=== PATIENT | female | born 1995 | race Caucasian/White ===

== ENCOUNTER 2019-05-04 00:01 | Observation (INO) | payer OTHER, SELFPAY ==
[2019-05-04] VITALS (13 sets, daily range): BP systolic 99–116; BP diastolic 61–79; PULSE 78–92; BMI 29.3
[2019-05-04 00:41] LABS: Glucose Point of Care 86 (65-105)
[2019-05-04 00:51] LABS: Add Urine Microscopic? YES; Amorphous Sediment Urine Few; Appearance Urine Cloudy (Clear); Bacteria Urine Trace /hpf; Bilirubin Urine Negative (Negative); Blood Urine 2+ (Negative); Color Urine Yellow (Yellow); Glucose Urine UA 3+ mg/dL (Negative); Ketones Urine Negative (Negative); Leukocyte Esterase Ur Trace LEU/UL (Negative); Mucus Urine Few /lpf; Nitrate Urine Negative (Negative); Protein Urine 1+ mg/dL (Negative); RBC Urine 51-75 /hpf (0-2); Specific Grav Ur 1.018 (1.001-1.035); Squamous Epithelial Cell Urine Many /hpf (Few)
--- NOTE | 2019-05-04 01:03 | PC.NURSE ---
Paged Dr. Lang @ [phone]- returned page at [phone]. pt came in c/o sharp lower abd pain and states that she passed out tonight around 2129. she states that she stood up from couch and passed out landing on her side on the couch. pt also states that she was dizzy prior to passing out. pt states that she had vomited x 45minutes prior to arrival. BS obtained due to pt stating that she checks her BS BID at home. BS-86. UA obtained and sent. UA results reviewed. orders received for CBC,CMP, TSH, and Free T4. order for LR 500mg bolus. call Dr. Lang with results of blood work.
[2019-05-04 01:32] LABS: Basophils Percent Auto 0.4 % (0.2-1.2); Eosinophils Absolute Auto 0.1 K/mm3 (0-0.3); Eosinophils Percent Auto 0.8 % (0-4.4); Hemoglobin 9.2 g/dL (12.0-15.0); Immature Granulocyte Absolute 0.09 K/mm3 (0.00-0.031); Immature Granulocyte Percent A 0.8 % (0-0.5); Lymphocytes Absolute Auto 1.68 K/mm3 (0.9-3.2); Lymphocytes Percent Auto 15.8 % (18.3-44.2); Mean Corpuscular HGB Conc 31.7 g/dl (32-36); Mean Corpuscular Hemoglobin 28.4 pg (26-34); Mean Corpuscular Volume 89.5 fl (80-100); Mean Platelet Volume 10.6 fl (7.4-10.4); Monocytes Percent Auto 9.1 % (2.6-8.5); Neutrophils Absolute Auto 7.8 K/mm3 (1.3-6.7); Neutrophils Percent Auto 73.1 % (45.5-73.1); Platelet Count Result 324 k/mm3 (150-375); Red Blood Count 3.24 M/mm3 (4.2-5.4); Red Cell Distribution Width 13.2 % (11.5-14.5); White Blood Count 10.6 K/mm3 (4.5-10.0)
[2019-05-04] MEDS: LACTATED RINGERS 500 ML 999 ML IV CONT (01:34)
--- NOTE | 2019-05-04 01:39 | OBADM ---
This patient, Chey Jones, admitted to the OB room OB Post 116 for observation. Patient/family oriented to hospital policies and general routines including ID bracelet, bed and alarms, visiting hours, pain management, procedures, bathroom and other care routines, personal items, smoking policy, room service/diet, and visiting hours. Patient/Family are encouraged to report perceived risks to care and to ask questions if they do not understand what they are told or what they should do.
[2019-05-04 01:59] LABS: Alanine Aminotransferase 9 U/L (4-35); Albumin Level 3.5 g/dL (3.5-5.1); Alkaline Phosphatase 93 U/L (38-126); Aspartate Amino Transferase 19 U/L (14-36); Bilirubin,Total 0.3 mg/dL (0.2-1.3); Blood Urea Nitrogen 4 mg/dL (7-17); Calcium 8.7 mg/dL (8.4-10.2); Carbon Dioxide 24 mmol/L (22-30); Chloride 101 mmol/L (98-107); Estimated CRCL calculation 126 ml/min; Estimated Glomerular Filt Rate > 60; Glucose 98 mg/dL (65-105); Potassium 3.4 mmol/L (3.4-5.0); Sodium 137 mmol/L (137-145)
[2019-05-04 02:19] LABS: Thyroid Stimulating Hormone 0.917 uIU/mL (0.465-4.680)
[2019-05-04 03:05] LABS: Free T4 Free Thyroxine 0.56 ng/mL (0.78-2.19)
--- NOTE | 2019-05-04 03:15 | PC.NURSE ---
paged Dr. Lang @[phone]. responded to page at [phone]. Labs reviewed, pt feeling better after bolus and oral fluids. ok to d/c pt home and pt to f/u at scheduled appt with Dr. Locke today at 0830. Dr. Lang requesting to send a copy of pt labs with pt to bring to office for appt.
--- NOTE | 2019-05-12 15:13 | PM.OBTRLD ---
OB - Triage/Final Diagnosis Visit Information Reason for evaluation: threatened labor Evaluation Laboratory results: Laboratory Tests 05/04/19 05/04/19 05/04/19 00:38 00:39 01:25 WBC 10.6 H RBC 3.24 L Hgb 9.2 L Hct 29.0 L MCV 89.5 MCH 28.4 MCHC 31.7 L RDW 13.2 Plt Count 324 MPV 10.6 H Immature Gran % (Auto) 0.8 H Neut % (Auto) 73.1 Lymph % (Auto) 15.8 L Oliver % (Auto) 9.1 H Eos % (Auto) 0.8 Baso % (Auto) 0.4 Lymph # (Auto) 1.68 Oliver # (Auto) 1.0 H Eos # (Auto) 0.1 Baso # (Auto) 0.0 Abs Immat Gran (auto) 0.09 H Absolute Neuts (auto) 7.8 H Absolute Nucleated RBC 0.0 Nucleated RBC % 0.0 Sodium Potassium Chloride Carbon Dioxide BUN Creatinine Estim Creat Clear Calc Estimated GFR Glucose POC Capillary Glucose 86 Calcium Total Bilirubin AST ALT Alkaline Phosphatase Total Protein Albumin TSH Free T4 Urine Color Yellow Urine Appearance Cloudy H Urine pH 6.0 Ur Specific [place] 1.018 Urine Protein 1+ H Urine Glucose (UA) 3+ H Urine Ketones Negative Ur Blood (Man) 2+ H Urine Nitrate Negative Urine Bilirubin Negative Urine Urobilinogen 2.0 H Leukocyte Esterase Rfl Trace H Urine RBC 51-75 H Urine WBC 4-6 H Ur Squamous Epith Cells Many H Amorphous Sediment Few H Urine Bacteria Trace Urine Mucus Few H 05/04/19 05/04/19 01:25 01:25 WBC RBC Hgb Hct MCV MCH MCHC RDW Plt Count MPV Immature Gran % (Auto) Neut % (Auto) Lymph % (Auto) Oliver % (Auto) Eos % (Auto) Baso % (Auto) Lymph # (Auto) Oliver # (Auto) Eos # (Auto) Baso # (Auto) Abs Immat Gran (auto) Absolute Neuts (auto) Absolute Nucleated RBC Nucleated RBC % Sodium 137 Potassium 3.4 Chloride 101 Carbon Dioxide 24 BUN 4 L Creatinine 0.50 L Estim Creat Clear Calc 126 Estimated GFR > 60 Glucose 98 POC Capillary Glucose Calcium 8.7 Total Bilirubin 0.3 AST 19 ALT 9 Alkaline Phosphatase 93 Total Protein 7.0 Albumin 3.5 TSH 0.917 Free T4 0.56 L Urine Color Urine Appearance Urine pH Ur Specific [place] Urine Protein Urine Glucose (UA) Urine Ketones Ur Blood (Man) Urine Nitrate Urine Bilirubin Urine Urobilinogen Leukocyte Esterase Rfl Urine RBC Urine WBC Ur Squamous Epith Cells Amorphous Sediment Urine Bacteria Urine Mucus
== END 2019-05-04 03:30 | disposition home or self-care (01) ==
PROVIDERS: Obstetrics & Gynecology; Admitting Provider Obstetrics & Gynecology Gynecology; Visit Provider Obstetrics & Gynecology Gynecology
DX: O47.03 False labor before 37 completed weeks of gestation, third trimester (principal); Z3A.32 32 weeks gestation of pregnancy
CPT/HCPCS: 36415; 80053; 81001; 84439; 84443; 85025; 96360; G0378; G0379; J7120

== ENCOUNTER 2019-05-16 23:18 | Observation (INO) | payer OTHER, SELFPAY ==
[2019-05-16 23:33] VITALS: BP 113/73; PULSE 108
[2019-05-17 00:26] LABS: Add Urine Microscopic? YES; Appearance Urine Cloudy (Clear); Bacteria Urine Trace /hpf; Bilirubin Urine Negative (Negative); Blood Urine 2+ (Negative); Color Urine Yellow (Yellow); Glucose Urine UA 3+ mg/dL (Negative); Ketones Urine Negative (Negative); Leukocyte Esterase Ur Trace LEU/UL (Negative); Mucus Urine Rare /lpf; Nitrate Urine Negative (Negative); Protein Urine Negative (Negative); Specific Grav Ur 1.008 (1.001-1.035); Squamous Epithelial Cell Urine Many /hpf (Few); Transitional Epi Cells Urine Rare /hpf (None Seen); Urobilinogen Urine Negative mg/dL (<2.0)
--- NOTE | 2019-06-11 09:25 | PM.OBTRLD ---
OB - Triage/Final Diagnosis Visit Information Date of evaluation: 05/17/19 Comments/Additional reasons for admission: contractions Evaluation Laboratory results: Laboratory Tests 05/16/19 23:51 Urine Color Yellow Urine Appearance Cloudy H Urine pH 7.0 Ur Specific [place] 1.008 Urine Protein Negative Urine Glucose (UA) 3+ H Urine Ketones Negative Ur Blood (Man) 2+ H Urine Nitrate Negative Urine Bilirubin Negative Urine Urobilinogen Negative Leukocyte Esterase Rfl Trace H Urine RBC 3-5 H Urine WBC 7-9 H Ur Squamous Epith Cells Many H Ur Transition Epith Cell Rare Urine Bacteria Trace Urine Mucus Rare
== END 2019-05-17 01:30 | disposition home or self-care (01) ==
PROVIDERS: Admitting Provider Obstetrics & Gynecology; Visit Provider Obstetrics & Gynecology
DX: O60.03 Preterm labor without delivery, third trimester (principal); Z3A.34 34 weeks gestation of pregnancy
CPT/HCPCS: 81001; 87086; 87088; G0378; G0379

== ENCOUNTER 2019-06-03 00:37 | Observation (INO) | payer OTHER, SELFPAY ==
[2019-06-03 00:48] VITALS: BMI 29.7
[2019-06-03 02:16] VITALS: BP 117/76; PULSE 114
[2019-06-03 02:31] VITALS: BP 104/57; PULSE 98
[2019-06-03 02:46] VITALS: BP 118/76; PULSE 95
--- NOTE | 2019-06-14 10:53 | PM.OBTRLD ---
OB - Triage/Final Diagnosis Final Diagnosis (1) contractions: Code(s): O47.9 - False labor, unspecified Status: Acute
== END 2019-06-03 03:05 | disposition home or self-care (01) ==
PROVIDERS: Admitting Provider Obstetrics & Gynecology; Visit Provider Obstetrics & Gynecology
DX: O47.03 False labor before 37 completed weeks of gestation, third trimester (principal); Z3A.36 36 weeks gestation of pregnancy
CPT/HCPCS: G0378; G0379

== ENCOUNTER 2019-06-07 19:36 | Observation (INO) | payer OTHER, SELFPAY ==
--- NOTE | ~2019-06-07 | US_ITS ---
EXAMINATION: US OB limited w BPP DATE: 06/07/2019 22:00 INDICATION: tachycardia TECHNIQUE: Real-time pelvic ultrasound was performed. The interpreting radiologist was not present fo r the study. COMPARISON: None. FINDINGS: There is a single living fetus in vertex presentation. The placenta is posterior. heart rate is 157 beats per minute (bpm). The amniotic fluid index is 10.3 cm which is normal Biophysical profile performed by the technologist: breathing (30 sec sustained breathing in 30 minutes): 2 out of 2 movement (3 gross body movements in 30 minutes): 2 out of 2 tone (one episode of yrwkdue-ubaommslj-bphzauf limb movement): 2 out of 2 Amniotic fluid pocket (2 cm): 2 out of 2 Total score: 8 out of 8 IMPRESSION: 1. Single living fetus in vertex presentation. 2. Biophysical profile 8 out of 8. 3. Normal amniotic fluid index. Reviewed, dictated and finalized at location A.
--- NOTE | 2019-06-07 19:36 | OBADM ---
This patient, Chey Jones, admitted to the OB room Labor/Delivery/Recovery 118 for observation. Patient/family oriented to hospital policies and general routines including ID bracelet, bed and alarms, visiting hours, pain management, procedures, bathroom and other care routines, personal items, smoking policy, room service/diet, and visiting hours. Patient/Family are encouraged to report perceived risks to care and to ask questions if they do not understand what they are told or what they should do.
[2019-06-07 19:50] VITALS: TEMP 37.2
--- NOTE | 2019-06-07 20:25 | PC.NURSE ---
Updated Dr. Locke on patient arrival to OB unit for NST for decreased movement. Active movement visualized, palpated and per patient after arrival to OB unit. FHT tachycardic in 170's with moderate variability. No contractions noted via toco monitor or per patient, mild uterine irritability present. VSS. Patient PO hydrating over 30 minutes and FHT remain tachy. Orders given for IV fluid bolus of 500cc LR, with 200cc continuos following bolus. Order for ultrasound with BPP, SARAH and placenta check ordered STAT. Order for CBC STAT given.
--- NOTE | 2019-06-07 20:35 | PC.NURSE ---
Plan of care discussed with patient. Patient states understanding with plan of care and denies questions.
[2019-06-07] MEDS: LACTATED RINGERS 1,000 ML 999 ML IV CONT (20:49)
[2019-06-07 21:13] LABS: Basophils Percent Auto 0.2 % (0.2-1.2); Eosinophils Absolute Auto 0.1 K/mm3 (0-0.3); Eosinophils Percent Auto 0.6 % (0-4.4); Hemoglobin 8.4 g/dL (12.0-15.0); Immature Granulocyte Absolute 0.06 K/mm3 (0.00-0.031); Immature Granulocyte Percent A 0.6 % (0-0.5); Lymphocytes Absolute Auto 1.41 K/mm3 (0.9-3.2); Lymphocytes Percent Auto 15.1 % (18.3-44.2); Mean Corpuscular HGB Conc 31.1 g/dl (32-36); Mean Corpuscular Hemoglobin 26.2 pg (26-34); Mean Corpuscular Volume 84.1 fl (80-100); Monocytes Absolute Auto 0.9 K/mm3 (0.1-0.6); Monocytes Percent Auto 9.6 % (2.6-8.5); Neutrophils Absolute Auto 6.9 K/mm3 (1.3-6.7); Neutrophils Percent Auto 73.9 % (45.5-73.1); Platelet Count Result 297 k/mm3 (150-375); Red Blood Count 3.21 M/mm3 (4.2-5.4); Red Cell Distribution Width 13.8 % (11.5-14.5); White Blood Count 9.3 K/mm3 (4.5-10.0)
--- NOTE | 2019-06-07 21:40 | PC.NURSE ---
Patient taken to ultrasound via wheelchair
[2019-06-07 21:58] VITALS: BMI 29.7
--- NOTE | 2019-06-07 22:02 | PC.NURSE ---
Patient returned from Ultrasound. Patient up to restroom.
[2019-06-07 22:04] VITALS: TEMP 37.1
--- NOTE | 2019-06-07 22:18 | PC.NURSE ---
Updated Dr. Locke with ultrasound report including BPP 8/, SARAH 10.3. CBC results reported. Dr. Locke updated on FHT 135/moderate/accelerations. Variables to 130's noted while fht tachycardia in 170's. Order given to admit patient for observation FHT monitoring overnight. Maintain IV fluids at 125ml/hr overnight.
[2019-06-07 22:39] VITALS: BP 126/77; PULSE 83
[2019-06-08] MEDS: LACTATED RINGERS 1,000 ML 125 ML IV CONT (00:16)
--- NOTE | 2019-06-08 00:17 | PC.NURSE ---
Patient resting comfortably.
[2019-06-08 01:26] VITALS: BP 124/73; PULSE 78; TEMP 36.9
[2019-06-08 05:26] VITALS: BP 109/51; PULSE 90; TEMP 37.2
--- NOTE | 2019-06-08 07:59 | WPDOBADMIT ---
Obstetrics - Admit Note Admission Note: record reviewed. No pertinent additions to the history and/or any subsequent changes in the physical findings that are not consistent with the expected course of the were found. Additions to the history and/or subsequent changes in the physical findings follow. Here with decreased movement. Fetus with tachycardia sustained. BPP 8/8 with normal fluid. When returned from u/s FHTs 130's and reactive. Kept overnight to obs. fetus and remained normal rate. Hb noted at 8.4 and has been taking iron BID. Will give iron infusion prior to DC then q week until delivers. DC once receives infusion
[2019-06-08 08:00] VITALS: TEMP 36.3
[2019-06-08 09:26] VITALS: BP 109/73; PULSE 95
[2019-06-08] MEDS: IRON SUCROSE COMPLEX 100 MG in SODIUM CHLORIDE 0.9% IV 100 ML 400 MG IVPB (09:27)
[2019-06-08 09:28] VITALS: TEMP 36.9
== END 2019-06-08 10:25 | disposition home or self-care (01) ==
LOC: ANHLDR 20:53 → ANHOBPP 22:28
PROVIDERS: Admitting Provider Obstetrics & Gynecology Gynecology; Visit Provider Obstetrics & Gynecology Gynecology
DX: O36.8130 Decreased fetal movements, third trimester, not applicable or unspecified (principal); O36.8330 Maternal care for abnormalities of the fetal heart rate or rhythm, third trimester, not applicable or unspecified; Z3A.37 37 weeks gestation of pregnancy
CPT/HCPCS: 36415; 76815; 76819; 85025; 96360; 96361; 96365; G0378; G0379; J1756; J7120

== ENCOUNTER 2019-06-21 16:41 | Inpatient (IN) | payer OTHER, SELFPAY ==
[2019-05-31 12:38] VITALS: BMI 29.7
[2019-06-21] VITALS (13 sets, daily range): BP systolic 103–125; BP diastolic 53–69; PULSE 82–102; TEMP 36.9
[2019-06-21 17:52] LABS: Basophils Percent Auto 0.1 % (0.2-1.2); Eosinophils Percent Auto 0.4 % (0-4.4); Hematocrit 29.6 % (37.0-47.0); Hemoglobin 9.1 g/dL (12.0-15.0); Immature Granulocyte Absolute 0.04 K/mm3 (0.00-0.031); Immature Granulocyte Percent A 0.5 % (0-0.5); Lymphocytes Absolute Auto 1.06 K/mm3 (0.9-3.2); Mean Corpuscular HGB Conc 30.7 g/dl (32-36); Mean Corpuscular Hemoglobin 25.8 pg (26-34); Mean Corpuscular Volume 83.9 fl (80-100); Mean Platelet Volume 10.6 fl (7.4-10.4); Monocytes Absolute Auto 0.7 K/mm3 (0.1-0.6); Monocytes Percent Auto 8.4 % (2.6-8.5); Neutrophils Absolute Auto 6.3 K/mm3 (1.3-6.7); Neutrophils Percent Auto 77.6 % (45.5-73.1); Platelet Count Result 322 k/mm3 (150-375); Red Blood Count 3.53 M/mm3 (4.2-5.4); Red Cell Distribution Width 15.4 % (11.5-14.5); White Blood Count 8.1 K/mm3 (4.5-10.0)
--- NOTE | 2019-06-21 18:02 | LDADM ---
This patient, Chey Jones, was admitted to Labor/Delivery/Recovery 107 on 06/21/19 at 16:41. Plans for labor, pain management and were discussed with patient. Patient/family oriented to hospital policies and general routines including ID bracelet, bed and alarms, visiting hours, pain management, procedures, bathroom and other care routines, personal items, smoking policy, room service/diet and guest tray routines, infant security routines, and visiting hours. Patient/Family are encouraged to report perceived risks to care and to ask questions if they do not understand what they are told or what they should do. See OBIX for further documentation.
[2019-06-21] MEDS: DINOPROSTONE 10 MG VAG INSERT VAGINAL (19:28)
[2019-06-22] VITALS (95 sets, daily range): BP systolic 102–145; BP diastolic 48–100; PULSE 67–126; TEMP 36.3–38.1; O2SAT 96–100
[2019-06-22 06:24] LABS: Glucose Point of Care 73 (65-105)
--- NOTE | 2019-06-22 07:50 | WPDOBADMIT ---
Obstetrics - Admit Note Admission Note: record reviewed. No pertinent additions to the history and/or any subsequent changes in the physical findings that are not consistent with the expected course of the were found. Additions to the history and/or subsequent changes in the physical findings follow. None.Here for CHEPECindy Jacksonnicci last pm. Now /-2 AROM with clear fluid. FHTs reactive.
[2019-06-22 07:54] LABS: Rapid Plasma Reagin Non-Reactive (NonReactive)
[2019-06-22] MEDS: LACTATED RINGERS 1,000 ML 125 ML IV CONT ×4 (08:54→22:46)
[2019-06-22] MEDS: OXYTOCIN 30 UNITS/NS 500 ML 30 UNITS/500 ML BAG 6 UNITS IV CONT (08:56)
[2019-06-22 12:18] LABS: Glucose Point of Care 79 (65-105)
[2019-06-22 18:19] LABS: Glucose Point of Care 80 (65-105)
--- NOTE | 2019-06-22 19:51 | P.PCNOB_ITS ---
OB - Delivery Note Procedure Delivery date: 06/22/19 Procedure: events: Gestational Diabetes (GDMA1) Induction method: AROM, per pitocin protocol and other (cervadil) Delivery monitor: external FHT and external uterine Route of delivery: Laceration description: Perineal - 2nd Degree Delivery repair: vicryl Specimen: No Estimated blood loss (mL): 200 Anesthesia type: Local Disposition: floor [place] Baby Weeks of gestation at delivery: 39 Infant gender: Female Weight (pounds): 7 Weight (ounces): 2 presentation: vertex Placenta delivery description: Spontaneous cord vessel description: 3 Vessels score one minute: 9 score five minutes: 9
--- NOTE | 2019-06-22 19:52 | PM.OBDSVD ---
DS: Diagnosis Discharge Diagnosis (1) 39 weeks gestation of : Code(s): Z3A.39 - 39 weeks gestation of Status: Acute (2) (normal spontaneous vaginal delivery): Code(s): O80 - Encounter for full-term uncomplicated delivery Status: Acute (3) GDM, class A1: Code(s): O24.410 - Gestational diabetes mellitus in , diet controlled Status: Acute OB - DS: Summary OB Procedures : NST and Ultrasound OB Procedures Intrapartum: Spontaneous Vag Delivery OB Procedures: : None Peripartum Data Infant Delivery Method: Natural Vaginal Laceration description: Perineal - 2nd Degree complications: none Status at Discharge Functional status at discharge: independent ambulation Overall status at discharge: patient is progressing back to baseline Time Spent with Patient Time attestation: Total time spent providing and/or coordinating discharge services: DS: Data Data Completed and Pending Labs on day of discharge: Labs from last 24 hours 06/22/19 06/22/19 06/22/19 18:16 12:13 06:19 POC Capillary Glucose 80 79 73 RPR 06/21/19 17:35 POC Capillary Glucose RPR Non-reactive Discharge Plan Discharge Attending physician on discharge: Meredith Locke Discharging Clinician: Meredith Locke Anticipated Discharge Date/Time: 06/24/19 07:54 Patient Disposition: Home, Self-Care Activity: pelvic rest Diet: regular Patient Instructions: Antibiotic Form Stand Alone Forms: General Discharge Information Follow-up/Referrals: Meredith Locke MD [Physician] - 6 Weeks Discharge Medications: Continued iron 2 tab-cap PO DAILY RF: 0 ergocalciferol (vitamin D2) 1,250 mcg (50,000 unit) capsule DAILY RF: 0 PNV cmb#95-ferrous fumarate-FA [] 28 mg iron- 800 mcg tablet PO RF: 0 Date of admission: 06/21/19 16:41 Primary Care Provider: UNKNOWN,DOCTOR Admitting Provider: Meredith Locke Attending physician on admission: Meredith Locke Condition: Stable
[2019-06-22] MEDS: OXYTOCIN 30 UNITS/NS 500 ML 30 UNITS/500 ML BAG 125 UNITS IV CONT (19:56)
[2019-06-22] MEDS: IBUPROFEN 600 MG TABLET PO (20:48)
[2019-06-22 23:00] LABS: Glucose Point of Care 147 (65-105)
[2019-06-22 23:00] LABS: Glucose Point of Care 151 (65-105)
--- NOTE | 2019-06-22 23:45 | OBPPTRN ---
Patient transferred to post room #282 via wheelchair with in crib. Support person present. Oriented to unit, room, information board, rooming in, admission packet and security measures. Patient verbalizes understanding.
[2019-06-23 00:20] VITALS: BP 125/75; PULSE 96; RESP 17; TEMP 37.3
[2019-06-23 06:09] LABS: Hematocrit 25.2 % (37.0-47.0); Hemoglobin 7.6 g/dL (12.0-15.0)
[2019-06-23 07:35] VITALS: BP 115/60; PULSE 91; RESP 18; TEMP 36.6; O2SAT 99
[2019-06-23] MEDS: DOCUSATE SODIUM 100 MG CAPSULE PO ×2 (07:44→16:14)
[2019-06-23] MEDS: POLYSACCHARIDE IRON COMPLEX 150 MG CAPSULE PO ×2 (07:44→16:14)
[2019-06-23] MEDS: IBUPROFEN 600 MG TABLET PO ×2 (07:44→16:14)
--- NOTE | 2019-06-23 08:58 | PM.OBPNVD ---
OB - PN: Subj Subjective Date/time seen: 06/23/19 08:58 Patient comments: no complaints, pain well controlled, tolerating diet and flatus present [place] baby status: doing well and bottle feeding well [place] feeding status: exclusively bottle feeding OB - PN: Obj Data Labs CBC & Chem 7: 06/23/19 05:17 Labs: Laboratory Results - last 24 hr 06/22/19 06/22/19 06/22/19 12:13 18:16 22:51 Hgb Hct POC Capillary Glucose 79 80 151 H 06/22/19 06/23/19 22:52 05:17 Hgb 7.6 L Hct 25.2 L POC Capillary Glucose 147 H OB - PN A/P Plan day: 1 Plan: routine care Time Spent With Patient Time: Total time spent is greater than 50% in coordination of care (as documented) at patient's floor/unit and/or counseling patient: Time with patient: less than 15 minutes Review of Systems Constitutional: Constitutional: Reports no additional constitutional complaints Cardiovascular: Cardiovascular: Reports no additional cardiovascular complaints Respiratory: Respiratory: Reports no additional respiratory complaints Gastrointestinal: Gastrointestinal: Reports no additional gastrointestinal complaints Exam Const: General: comfortable, no acute distress, alert and awake Resp: Effort & Inspection: normal respiratory effort Auscultation: clear to auscultation bilaterally Cardio: Rate: regular rate GI: Auscultation: normal bowel sounds Other: Fundus firm below umbilicus
[2019-06-23 20:25] VITALS: BP 113/71; PULSE 80; RESP 14; TEMP 36.8; O2SAT 100
[2019-06-24] MEDS: IBUPROFEN 600 MG TABLET PO ×2 (01:32→08:44)
--- NOTE | 2019-06-24 07:35 | PM.OBPNVD ---
OB - PN: Subj Subjective Date/time seen: 06/24/19 07:35 Patient comments: no complaints and pain well controlled baby status: doing well and bottle feeding well OB - PN: Obj Data Labs CBC & Chem 7: 06/23/19 05:17 OB - PN A/P Assessment and Plan (1) Anemia: Code(s): D64.9 - Anemia, unspecified Status: Acute Assessment and Plan: Plan iron BID x 8 wks Plan day: 2 Plan: routine care, discharge home and other (Plans Loestrin 24 for bc) Time Spent With Patient Time: Total time spent is greater than 50% in coordination of care (as documented) at patient's floor/unit and/or counseling patient: Exam : Bimanual exam- vagina & uterus: other (Uterus firm, nt @U)
[2019-06-24 08:10] VITALS: BP 113/74; PULSE 82; RESP 16; TEMP 36.9; O2SAT 99
[2019-06-24] MEDS: POLYSACCHARIDE IRON COMPLEX 150 MG CAPSULE PO (08:44)
[2019-06-24] MEDS: DOCUSATE SODIUM 100 MG CAPSULE PO (08:44)
[2019-06-24] MEDS: MEASLES,MUMPS,RUBELLA VACCINE 0.5 ML VIAL SUB-Q (08:45)
--- NOTE | 2019-06-24 10:43 | PC.NURSE ---
Patient viewed the discharge video Mother & Baby Care, The First Two Weeks . Patient was given the opportunity and encouraged to ask questions. Patient verbalized understanding of information shared and has been given the mother/baby guide for home reference.
[2019-06-25 07:44] VITALS: BP 112/78; PULSE 78; RESP 16; TEMP 36.4; O2SAT 100
== END 2019-06-24 12:01 | disposition home or self-care (01) | DRG 560 ==
LOC: ANHLDR 06-22 19:55 → ANHOB2 06-23 00:13
PROVIDERS: Admitting Provider Obstetrics & Gynecology Gynecology; Visit Provider Obstetrics & Gynecology Gynecology
DX: O24.429 Gestational diabetes mellitus in childbirth, unspecified control (principal); Z37.0 Single live birth; Z3A.39 39 weeks gestation of pregnancy; O70.1 Second degree perineal laceration during delivery; O69.81X0 Labor and delivery complicated by cord around neck, without compression, not applicable or unspecified
CPT/HCPCS: 36415; 85014; 85018; 85025; 86592; 86850; 86900; 86901; 90710; A9270; J2590; J2795; J3010; J7120

== ENCOUNTER 2021-02-17 11:33 | Emergency (ER) | payer OTHER, SELFPAY ==
[2021-02-17 11:38] VITALS: BP 102/70; PULSE 94; RESP 16; TEMP 37; O2SAT 100
--- NOTE | 2021-02-17 12:57 | ED.URI ---
HPI - URI/Sore Throat General Chief Complaint: Upper Respiratory Infection Stated Complaint: congestion and ear aches Time Seen by Provider: 02/17/21 12:47 Source: patient and RN notes reviewed Mode of arrival: ambulatory Limitations: no limitations History of Present Illness HPI Narrative: Patient presents today with a 4-day history of nasal congestion and bilateral ear pain with muffled hearing. Denies any additional symptoms to include fever, cough, sore throat. She currently rates her pain 7/10 and has been taking Benadryl and using pjub-imq-oixzxob eardrops without relief. MD elicited complaint: nasal congestion and other (Ear pain) Related Data Home Medications Medication Instructions Recorded Confirmed amitriptyline 10 mg PO HS 02/17/21 02/17/21 levonorgestrel [Kyleena] 1 device INTRAUTERINE ONCE 02/17/21 02/17/21 Allergies Allergy/AdvReac Type Severity Reaction Status Date / Time No Known Allergies Allergy Verified 02/17/21 11:55 Review of Systems Review of Systems: CONSTITUTIONAL: Denies body aches, fever, chills, or sweats. EYES: Denies visual changes, redness, or discharge. ENT: Denies rhinorrhea, sore throat. + Bilateral ear pain, nasal congestion, muffled hearing CARDIOVASCULAR: Denies chest pain, palpitations, or edema. RESPIRATORY: Denies cough or dyspnea. GASTROINTESTINAL: Denies abdominal pain, nausea, vomiting, or diarrhea. GENITOURINARY: Denies dysuria or hematuria. SKIN: Denies rash, itching, or wounds. MUSCULOSKELETAL: Denies back pain, joint pain, or myalgia. NEUROLOGIC: Denies headache, numbness, tingling, or weakness. PSYCH: Denies depression or anxiety. [facility] Past Medical History Medical History contractions (Unknown) Family History Family History Grandparent Colon cancer Mother Diabetes mellitus Grandparent Diabetes mellitus Social History Social History Smoking status: Never smoker Second hand tobacco smoke exposure: No Substance use: never Gender identity (if verbalized by the patient): Female Spiritual care concerns: No Comments At time of signature, I have reviewed and agree with nursing past medical, surgical, social and family history unless otherwise noted. Please see nursing chart for further information. There is no relevant family history pertinent to the presenting complaint Exam Narrative: GENERAL: Well-appearing, well-nourished, and in no acute distress. HEAD: Normocephalic, atraumatic. EYES: EOMI. No redness or drainage. Conjunctivae normal. ENT: Mucous membranes pink and moist. Nares clear. No rhinorrhea. TMs normal bilaterally. Throat normal. Uvula midline. NECK: Normal AROM. Supple. No lymphadenopathy. CHEST: No respiratory distress. Clear to auscultation. HEART: Regular rate and rhythm. No murmur appreciated. Normal peripheral pulses. EXTREMITIES: Normal range of motion. No edema. SKIN: Warm, dry, no rash. Capillary refill normal. Normal skin turgor. NEURO: No focal deficits. Alert and oriented x3. Gait steady. PSYCH: Normal affect. No signs of depression or anxiety. Course Vital Signs Vital signs: Vital Signs Temperature 98.6 F 02/17/21 11:38 Pulse Rate 94 02/17/21 11:38 Respiratory Rate 16 02/17/21 11:38 Blood Pressure 102/70 02/17/21 11:38 Pulse Oximetry 100 02/17/21 11:38 Temperature 98.6 F 02/17/21 11:38 Pulse Rate 94 02/17/21 11:38 Respiratory Rate 16 02/17/21 11:38 Blood Pressure 102/70 02/17/21 11:38 Pulse Oximetry 100 02/17/21 11:38 At time of signature, I have reviewed and agree with nursing past medical, surgical, social and family history unless otherwise noted. Please see nursing chart for further information. There is no relevant family history pertinent to the presenting complaint M
== END 2021-02-17 13:00 | disposition home or self-care (01) ==
PROVIDERS: Emergency Provider Nurse Practitioner
DX: J06.9 Acute upper respiratory infection, unspecified (principal); F32.A Depression, unspecified
CPT/HCPCS: 99211; G0463

== ENCOUNTER 2021-07-12 17:04 | Emergency (ER) | payer OTHER, SELFPAY ==
[2021-07-12 17:22] VITALS: BP 129/79; PULSE 90; RESP 16; TEMP 37.2; O2SAT 100
--- NOTE | 2021-07-12 18:12 | ED.EAR ---
HPI - Ear Problem General Chief complaint: Ear Stated complaint: right side ear infection Time Seen by Provider: 07/12/21 18:05 Source: patient, RN notes reviewed and old records reviewed Mode of arrival: ambulatory Limitations: no limitations History of Present Illness HPI Narrative: 26-year-old female who presents to [facility] with complaints of sinus problems and drainage for 4 to 5 days with complaints of right ear discomfort for the past 2 days. Patient states that her right ear feels like she is underwater, voices throbbing pain and decreased hearing. Patient report that she has been taking Ibuprofen and Tylenol for pain and has used some OTC ear drops to her right ear. Patient denies any fevers, chills or sweats, denies any body aches, shortness of breath or any noted wheezing.Patient reports that she has had Flu shot this year no COVID vaccination states had past COVID infection. MD Complaint: ear pain (right) Location: right ear Duration: constant Discharge from ear: Reports no Associated symptoms ear: decreased hearing Treatment prior to arrival: eardrops and oral analgesic Related Data Home Medications Medication Instructions Recorded Confirmed amitriptyline 10 mg PO HS 02/17/21 07/12/21 levonorgestrel [Kyleena] 1 device INTRAUTERINE ONCE 02/17/21 07/12/21 Allergies Allergy/AdvReac Type Severity Reaction Status Date / Time No Known Allergies Allergy Verified 07/12/21 17:31 Review of Systems Review of Systems: CONSTITUTIONAL: Denies fever, chills, or sweats. EYES: Denies visual changes, redness, or discharge. ENT: Positive for rhinorrhea, congestion,no sore throat, positive for right otalgia. CARDIOVASCULAR: Denies chest pain, palpitations, or edema. RESPIRATORY: Denies cough or dyspnea. GASTROINTESTINAL: Denies abdominal pain, nausea, vomiting, or diarrhea. GENITOURINARY: Denies dysuria or hematuria. SKIN: Denies rash or itching. MUSCULOSKELETAL: Denies back pain, joint pain, or myalgia. NEUROLOGIC: Denies headache, numbness, or weakness. PSYCHIATRIC: Positive for history of anxiety or depression. [facility] Past Medical History Medical History Anxiety and depression History of sinus problem contractions (Unknown) Family History Family History Grandparent Colon cancer Mother Diabetes mellitus Grandparent Diabetes mellitus Social History Social History Smoking status: Never smoker Second hand tobacco smoke exposure: No Substance use: never Gender identity (if verbalized by the patient): Female Spiritual care concerns: No Exam Narrative: GENERAL: Well-appearing, well-nourished, and in no acute distress. HEAD: Normocephalic, atraumatic. EYES: PERRLA and EOMI. ENT: Nares with some redness and clear rhinorrhea no epistaxis. Mucous membranes moist.Right TM red and bulging no drainage noted, throat mild redness, no lesions or tonsil swelling, post nasal drainage NECK: Supple.no lymphadenophy CHEST: Clear to auscultation. No respiratory distress.no cough noted no tachypnea, SAO2 100% on room air HEART: Regular rate and rhythm. No murmur heard. Normal peripheral pulses. ABDOMEN: Soft, nontender, nondistended, normal active bowel sounds. EXTREMITIES: Normal range of motion. No edema. SKIN: Warm, dry, no rash. NEURO: No focal deficits. Alert and oriented x3. Course Course Level of Care: Express Care Visit Vital Signs Vital signs: Vital Signs Temperature 37.2 C 07/12/21 17:22 Pulse Rate 90 07/12/21 17:22 Respiratory Rate 16 07/12/21 17:22 Blood Pressure 129/79 07/12/21 17:22 Pulse Oximetry 100 07/12/21 17:22 Temperature 37.2 C 07/12/21 17:22 Pulse Rate 90 07/12/21 17:22 Respiratory Rate 16 07/12/21 17:22 Blood Pressure 129/79 07/12/21 17:22 Pulse Oximetry 100 07/12/21 17
== END 2021-07-12 18:25 | disposition home or self-care (01) ==
PROVIDERS: Emergency Provider Registered Nurse
DX: H65.01 Acute serous otitis media, right ear (principal); J06.9 Acute upper respiratory infection, unspecified; F32.A Depression, unspecified; Z86.16 Personal history of COVID-19; Z28.310 Unvaccinated for COVID-19
CPT/HCPCS: 99213; G0463

== ENCOUNTER 2021-10-17 15:58 | Outpatient (CLI) | payer OTHER, SELFPAY ==
--- NOTE | ~2021-10-17 | US_ITS ---
EXAMINATION: US pelvic complete DATE: 10/17/2021 17:15 INDICATION: Pelvic pain Comparison:No prior studies for comparison. TECHNIQUE: Multiple transabdominal and endovaginal sonographic images of the pelvis performed. FINDINGS: The uterus measures 7.5 x 3 x 3.6 cm. There is an IUD in the endometrium. The endometrial c omplex measures 2.3 mm. The right ovary measures 2.8 x 1.7 x 2.9 cm and the left ovary measures 2.4 x 2.5 x 1.4 cm. There ar e small follicles in each ovary. Normal doppler signal in both ovaries. There is no free fluid in the pelvis. There are no abnormal masses seen on either side. IMPRESSION: 1. Unremarkable pelvic ultrasound. IUD in expected position in the endometrium. Reviewed, dictated and finalized at location A.
== END 2021-10-17 15:59 | disposition home or self-care (01) ==
PROVIDERS: Visit Provider Nurse Practitioner
DX: R10.2 Pelvic and perineal pain (principal); Z97.5 Presence of (intrauterine) contraceptive device
CPT/HCPCS: 76856

== ENCOUNTER 2022-02-23 10:42 | Emergency (ER) | payer OTHER, SELFPAY ==
--- NOTE | ~2022-02-23 | XR_ITS ---
XR shoulder LT min 2V 02/23/2022 11:01 INDICATION: Left shoulder pain after fall PROCEDURE: 4 views left shoulder COMPARISON: No prior studies for comparison. FINDINGS: Fracture, dislocation or subluxation is not identified. There is anatomic alignment. The so ft tissues appear within normal limits. No foreign bodies are identified. IMPRESSION: 1: NO ACUTE BONE OR JOINT ABNORMALITY IDENTIFIED. Reviewed, dictated and finalized at location A. [place] [facility]
[2022-02-23 10:46] VITALS: BP 105/67; PULSE 97; RESP 14; TEMP 36.4; O2SAT 100
--- NOTE | 2022-02-23 10:47 | ED.UPPEXIN ---
HPI - Extremity Injury (Upper) General Chief Complaint: Extremity Injury, Upper Stated Complaint: left shoulder injury Time Seen by Provider: 02/23/22 10:47 Source: patient and RN notes reviewed History of Present Illness HPI narrative: patient is a 26-year-old female who presents to the Urgent Care with complaints left shoulder pain that started yesterday after she fell outward ice skating. Patient states that she is left-hand dominant. Patient states it is difficult to raise due to pain. She has been using ibuprofen. No other acute complaints or injuries from the fall. No acute distress noted. Patient aware of the plan of care. Some parts of this dictation were generated by voice recognition software and may contain typographical and/or grammatical inaccuracies. Related Data Home Medications Medication Instructions Recorded Confirmed amitriptyline 10 mg tablet 10 mg PO HS 02/17/21 07/12/21 levonorgestrel 17.5 mcg/24 hrs 1 device intrauterine ONCE 02/17/21 07/12/21 (5yrs) 19.5mg intrauterine device (Kyleena) Allergies Allergy/AdvReac Type Severity Reaction Status Date / Time No Known Allergies Allergy Verified 07/12/21 17:31 Review of Systems Review of Systems: CONSTITUTIONAL: Denies fever, chills, or sweats. EYES: Denies visual changes, redness, or discharge. ENT: Denies rhinorrhea, congestion, sore throat, or otalgia. CARDIOVASCULAR: Denies chest pain, palpitations, or edema. RESPIRATORY: Denies cough or dyspnea. GASTROINTESTINAL: Denies abdominal pain, nausea, vomiting, or diarrhea. GENITOURINARY: Denies dysuria or hematuria. SKIN: Denies rash or itching. MUSCULOSKELETAL: Reports of left shoulder pain NEUROLOGIC: Denies headache, numbness, or weakness. All other systems reviewed are negative, except as documented in HPI. [facility] Past Medical History Medical History Anxiety and depression History of sinus problem contractions (Unknown) Family History Family History Grandparent Colon cancer Mother Diabetes mellitus Grandparent Diabetes mellitus Social History Social History Smoking status: Never smoker Second hand tobacco smoke exposure: No Substance use: never Gender identity (if verbalized by the patient): Female Spiritual care concerns: No Comments At the time of my signature, I reviewed and agree with the nursing past medical, surgical, social, and family history. There is no relevant family history pertinent to the patient complaint. Exam Narrative: GENERAL: This is a well-nourished, well-developed patient, in no apparent distress. HEAD: normocephalic, atraumatic. EYES: PERRL. Sclera clear/white. Vision is grossly intact. EARS: External ears normal NOSE: External nose normal with no obvious nasal discharge, nares without redness, no rhinorrhea. THROAT: Mucous membranes moist NECK: Neck supple SKIN: warm, intact with no suspicious lesions or rash, good texture and turgor. NEURO: awake, alert, and oriented to person, place and time. There were no obvious focal neurologic abnormalities. EXTREMITIES: no pain to ID area or posterior joint and the left shoulder. Range of motion limited due to pain. Exacerbated with reach. Positive strong left radial pulse with capillary refill less than 2 seconds. Course Course Level of Care: Express Care Visit Vital Signs Vital signs: Vital Signs Temperature 97.6 F 02/23/22 10:46 Pulse Rate 97 02/23/22 10:46 Respiratory Rate 14 02/23/22 10:46 Blood Pressure 105/67 02/23/22 10:46 Pulse Oximetry 100 02/23/22 10:46 Oxygen Delivery Room Air 02/23/22 10:46 Temperature 97.6 F 02/23/22 10:46 Pulse Rate 97 02/23/22 10:46 Respiratory Rate 14 02/23/22 10:46 Blood Pressure 105/67 02/23/22 10:46 Pulse Oximetry 100
== END 2022-02-23 11:15 | disposition home or self-care (01) ==
PROVIDERS: Emergency Provider Nurse Practitioner Family
DX: S43.402A Unspecified sprain of left shoulder joint, initial encounter (principal); W19.XXXA Unspecified fall, initial encounter; Y93.21 Activity, ice skating; F32.A Depression, unspecified
CPT/HCPCS: 73030; 99213; G0463

== ENCOUNTER 2023-06-16 13:02 | Outpatient (CLI) | payer OTHER, SELFPAY ==
--- NOTE | ~2023-06-16 | US_ITS ---
EXAMINATION: US OB transvaginal DATE: 06/16/2023 INDICATION: Spotting in first trimester. TECHNIQUE: Real-time transvaginal pelvic ultrasound was performed. COMPARISON: None. FINDINGS: The uterus measures 7.8 x 3.2 x 4.4 cm. There is a cyst in the endometrial complex with mean diameter of 5 mm that may be a gestational sac. No yolk sac or pole is identified. The right ovary cherry ures 3.9 x 2.4 x 3.5 cm. The left ovary measures 3.9 x 2.2 x 2.4 cm. There is no free fluid in the pe lvis. IMPRESSION: 1. Possible intrauterine gestational sac. Spontaneous and ectopic are not exclude d. Serial beta-hCGs are recommended. Reviewed, dictated and finalized at location E. IMPRESSION: 1. Possible intrauterine gestational sac. Spontaneous and ectopic pre gnancy are not excluded. Serial beta-hCGs are recommended.
== END 2023-06-16 13:03 ==
PROVIDERS: PCP Obstetrics & Gynecology Gynecology; Visit Provider Obstetrics & Gynecology Gynecology
DX: O26.851 Spotting complicating pregnancy, first trimester (principal); Z3A.00 Weeks of gestation of pregnancy not specified
CPT/HCPCS: 76817

== ENCOUNTER 2023-07-07 14:55 | Outpatient (CLI) | payer OTHER, SELFPAY ==
--- NOTE | ~2023-07-07 | US_ITS ---
EXAMINATION: US OB <=14 wk fetus w TV DATE: 07/07/2023 15:21 INDICATION: Inappropriate rise of beta-hCG level TECHNIQUE: Real-time pelvic ultrasound utilizing both a transvaginal and transabdominal probe was pe rformed. The interpreting radiologist was not present for the study. COMPARISON: 06/16/2023 FINDINGS: The uterus measures 7.6 x 4.1 x 3.2 cm. 8 mm cystic lesion at the right side of the endometrial comp mary at the uterine fundus without evident internal yolk sac or pole, potentially a gestational sac. Dislocation is identical as the smaller 5 mm cystic lesion seen on the prior ultrasound. The delaney n sac diameter of 8 mm with correlate with an estimated gestational age of 5 weeks and 3 days. The right ovary measures 3.1 x 3.8 x 2.7 cm. The left ovary measures 2.0 x 2.1 x 1.9 cm. 2.8 cm anech oic cyst/dominant follicle at the right ovary. There are a few additional subcentimeter anechoic cyst s/follicles at both ovaries. Vascular flow identified at both ovaries on color Doppler. There is no f ree fluid in the pelvis. IMPRESSION: 1. 8 mm possible intrauterine gestational sac but without evident internal yolk sac or pole for more definitive determination. Differential would include early, failed or ectopic . 2. Gestational age by ultrasound of weeks day(s) +/- day(s) with ultrasound estimated date of delive ry (CUCA) of . Reviewed, dictated and finalized at location A. IMPRESSION: 1. 8 mm possible intrauterine gestational sac but without evident internal yolk sac or pole for more definitive determination. Differential would includ e early, failed or ectopic . 2. Gestational age by ultrasound of weeks day(s) +/- day(s) with ultrasound es timated date of delivery (CUCA) of .
== END 2023-07-07 14:56 ==
LOC: GOSHIMG 14:55
PROVIDERS: PCP Obstetrics & Gynecology Gynecology; Visit Provider Obstetrics & Gynecology Gynecology
DX: O02.81 Inappropriate change in quantitative human chorionic gonadotropin (hCG) in early pregnancy (principal); Z3A.00 Weeks of gestation of pregnancy not specified
CPT/HCPCS: 76801; 76817

== ENCOUNTER 2024-04-30 08:23 | Outpatient (CLI) | payer OTHER, SELFPAY ==
--- NOTE | ~2024-04-30 | US_ITS ---
EXAMINATION: US OB <=14 wk fetus w TV DATE: 04/30/2024 08:46 INDICATION: Establish dating of first trimester . TECHNIQUE: Real-time pelvic ultrasound utilizing both a transvaginal and transabdominal probe was pe rformed. The interpreting radiologist was not present for the study. COMPARISON: None. FINDINGS: The uterus measures 8.7 x 5.5 x 4.2 cm. There is an intrauterine gestational sac. A yolk sac and fet al pole are identified. The crown rump length measures 4 mm, which correlates with an estimated gesta tional age of 6 weeks and 1 days. heart motion is identified measuring 111 beats per minute (bp m) by M-mode Doppler. The right ovary measures 3.1 x 3.2 x 2.0 cm. There is a 1.9 cm hypoechoic corpus luteum cyst in the r ight ovary. The left ovary measures 1.9 x 1.6 x 2.0 cm. Vascular flow identified in both ovaries on c olor Doppler. There is no free fluid in the pelvis. IMPRESSION: 1. Single living fetus with heart rate of 111 bpm. 2. Gestational age by ultrasound of 6 weeks 1 day(s) +/- 4 day(s) with ultrasound estimated date of delivery (CUCA) of 12/23/2024. Reviewed, dictated and finalized at location B. CONSULTANT IMPRESSION: 1. Single living fetus with heart rate of 111 bpm. 2. Gestational age by ultrasound of 6 weeks 1 day(s) +/- 4 day(s) with ultraso und estimated date of delivery (CUCA) of 12/23/2024.
== END 2024-04-30 08:24 | disposition home or self-care (01) ==
PROVIDERS: PCP Obstetrics & Gynecology; Visit Provider Obstetrics & Gynecology
DX: Z34.80 Encounter for supervision of other normal pregnancy, unspecified trimester (principal)
CPT/HCPCS: 76801; 76817

== ENCOUNTER 2024-06-07 00:33 | Day surgery (SDC) | payer OTHER, SELFPAY ==
[2024-06-04 09:30] VITALS: BMI 25.4
--- NOTE | 2024-06-04 09:36 | PC.NURSE ---
Report to the Outpatient Waiting Room, entrance under the green pavilion located off [facility], at time _0600_ on date _[id number]_. Planned Procedure Time: _0730_.? Time changes happen often and if your time is changed the preop area will call you the afternoon before. - You and your visitor will be asked to self-screen and do not enter if you have any COVID symptoms. Please call surgeon if you need to reschedule. - A mask is optional within the hospital at this time. Patients may have clear liquids (water, carbonated beverages, clear teas, apple juice) until 3 hours prior to surgery with a maximum of 20 ounces. - No food from midnight until time of surgery and no smoking, or chewing tobacco (or any form of nicotine). No chewing gum, candy or mints. Take only the following medications with a SIP of water on the morning of surgery: ___None DO NOT STOP ANY OF YOUR OTHER PRESCRIPTION MEDICATIONS PRIOR TO SURGERY EXCEPT THE FOLLOWING Hold all vitamins and supplements for 3 days per anesthesiologist. Medications to discontinue per physician Please ask Dr Mark's office if ok to take Ibuprofen Date to take last dose Please no make-up, nail georgian, hairspray, perfume, deodorant, or body powder the day of surgery.? No jewelry (including any body piercings) or valuables the day of surgery, leave them at home.? Please take a shower or bath the night before, or the morning of, surgery with an antibacterial soap.? Wear comfortable, loose fitting clothing.? - Jewelry must be removed prior to entering the operating room.? Rings and piercings that are not removed may be cut off. - The hospital will not accept responsibility for valuables.? - Please leave all valuables, including medications, at home the day of surgery. If you are going home after surgery, a licensed guard driver must drive you home.? - NO public transportation without another adult if you receive anesthesia. - We recommend that an adult stay with you for 24 hours following discharge. - We also recommend that you do not drive, make important decision, drink alcoholic beverages, or take any drugs that were not prescribed by your health care provider for at least 24 hours after your discharge time. Follow any additional instructions given to you from your surgeon. Telephone instructions given to __Chey__and asked if any additional questions and then verbalized understanding. Patient advised to call surgeon office or pre surgery nurse liaison [phone] if any additional questions.
--- OUTSIDE RECORDS SUMMARY | 2024-06-07 00:37 | XMS_ITS | Clinical Summary ---
Author Organization [facility] [employer] Address [address] [place] [address] Care Team Providers Care Hot Pond Operator Name Role Phone Unavailable Primary Care Provider Unavailabl e Source Comments [facility],non-owned Affiliates and Associated Physician Practices is amultiple site organization consisting of ambulatory clinics and hospital sitesin [place], [place], [place] and [place]. This disclosure is being madepursuant to the Care Everywhere program and may not contain all information available regarding this patient. Last updated 17.[facility] [employer] Allergies No known active allergies Medications Be aware that medications may not be up to date on this document. Always verify current medications with the patient. No known medications Social History Tobacco Use Types Packs/Day Years Used Date Smoking Tobacco: Never Smokeless Tobacco: Never Sex and Gender Information Value Date Recorded Sex Assigned at Not on file Gender Identity Not on file Sexual Orientation Not on file Last Filed Vital Signs Vital Sign Reading Time Taken Comments Blood Pressure 104/62 12/02/2016 7:49 AM CDT Pulse 64 12/02/2016 7:49 AM CDT Temperature 36.9 C (98.5 F) 12/02/2016 7:49 AM CDT Respiratory Rate - - Oxygen Saturation - - Inhaled Oxygen Concentration - - Weight 49.9 kg (110 lb) 12/02/2016 7:49 AM CDT Height 152.4 cm (5') 12/02/2016 7:49 AM CDT Body Mass Index 21.48 12/02/2016 7:49 AM CDT Plan of Treatment Health Maintenance Due Date Last Done Comments PAP SMEAR 1995 HIV SCREENING 2010 HEPATITIS C SCREENING 05/02/2013 DTAP/TDAP/TD VACCINES (1 - Tdap) 2014 HEPATITIS B VACCINE (1 of 3 - 19+ 3-dose series) 2014 COVID-19 VACCINE (2023-2 5 season) 2023 INFLUENZA VACCINE (#1) 2023 DEPRESSION SCREENING 03/24/2024 ZOSTER VACCINE (1 of 2) 2045 HIB VACCINE Aged Out No longer eligi ble based on patient's age to complete this topic HPV VACCINE Aged Out No longer eligi ble based on patient's age to complete this topic MENINGOCOCCAL (Group B) VACC INE SHARED DECISION-MAKING Aged Out No longer eligibl e based on patient's age to complete this topic MENINGOCOCCAL GROUPS A/C/Y/W VACCINE Aged Out No longer eligible b ased on patient's age to complete this topic PNEUMOCOCCAL VACCINE Aged Out No long er eligible based on patient's age to complete this topic
--- OUTSIDE RECORDS SUMMARY | 2024-06-07 00:37 | XMS_ITS | Referral Summary ---
Author Organization [facility] Address [address] [place] [address] Care Team Providers Care Rn Clinical Trials Name Role Phone Unavailable Primary Care Provider Unavailabl e Source Comments [facility],non-owned Affiliates and Associated Physician Practices is amultiple site organization consisting of ambulatory clinics and hospital sitesin [place], [place], [place] and [place]. This disclosure is being madepursuant to the Care Everywhere program and may not contain all information available regarding this patient. Last updated 17.[facility] [employer] Allergies No known active allergies Medications Be [...] 12/02/2016 7:49 AM CDT Plan of Treatment Not on file
--- OUTSIDE RECORDS SUMMARY | 2024-06-07 00:37 | XMS_ITS | Clinical Summary ---
Author Organization [facility] Address [address] [place] [address] Phone Care Team Providers Care Manager Of Clinical Name Role Phone Renetta Xavier YENNY TEJADA Primary Care Provider [phone] Allergies No known active allergies Medications Meloxicam 15 MG Tablet Take 1 Tab by mouth daily. 10 Tab 8 Active Additional Information Patient not taking.Reported on 05/15/2017 Meloxicam 15 MG Tablet Take 1 Tab by mouth daily. 10 Tab 8 Active Additional Information Patient not taking.Reported on 05/15/2017 raNITIdine (ZANTAC) 150 MG Tablet Take 1 Tab by mouth 2 times daily. 180 Tab 8 Active Additional Information Patient not taking.Reported on 08/08/2017 ketorolac (TORADOL) 10 MG Tablet Take 1 Tab by mouth every 6 hours as needed for Mild or more severe pain. 15 Tab 9 Active Additional Information Patient not taking.Reported on 10/13/2019 cyclobenzaprine (FLEXERIL) 5 MG Tablet Take 1 Tab by mouth 3 times daily as needed for Muscle spasms. 15 Tab 9 Active Additional Information Patient not taking.Reported on 10/13/2019 metoclopramide (REGLAN) 10 MG Tablet Take 1 Tab by mouth 4 times daily as needed for Nausea - 1st line. 20 Tab 9 Active Additional Information Patient not taking.Reported on 10/13/2019 Ondansetron HCl (ZOFRAN PO) Take by mouth. Act ramos Vit-Fe Fumarate-FA ( VITAMIN PO) Take by mouth. Act ramos albuterol 108 (90 Base) MCG/ACT Aerosol Solution take 2 Puffs by inhalation every 4 hours as needed for Wheezing or Cough (Shortness of breath). 8.5 g 0 Active Family History Medical History Relation Name Comments Diabetes Mother Colon Cancer Paternal Grandfather colon Relation Name Status Comments Father Alive Mother Alive Paternal Grandfather Social History Tobacco Use Types Packs/Day Years Used Date Smoking Tobacco: Never Smokeless Tobacco: Never Alcohol Use Standard Drinks/Week Comments Yes 0 (1 standard drink = 0.6 oz pur e alcohol) socially Comments Unknown Sex and Gender Information Value Date Recorded Sex Assigned at Not on file Legal Sex Female 10:57 PM CDT Gender Identity Not on file Sexual Orientation Not on file Last Filed Vital Signs Vital Sign Reading Time Taken Comments Blood Pressure 118/76 12/20/2019 1:01 PM CDT Pulse 64 12/20/2019 1:01 PM CDT Temperature 36.5 C (97.7 F) 12/20/2019 10:56 AM CDT Respiratory Rate 18 12/20/2019 1:01 PM CDT Oxygen Saturation 98% 12/20/2019 1:01 PM CDT Inhaled Oxygen Concentration - - Weight 52.2 kg (115 lb) 12/20/2019 10:56 AM CDT Height 160 cm (5' 3 ) 12/20/2019 10:56 AM CDT Body Mass Index 20.37 12/20/2019 10:56 AM CDT Plan of Treatment Health Maintenance Due Date Last Done Comments Hepatitis C Virus (HCV) Screening 1995 TdaP Immunization 1995 Hepatitis B Immunization (1 of 3 - 19+ 3-dose series) 2014 Pap Smear 2016 Influenza Immunization (#1) 2023 SARS-COV-2 Immunization (2023- season) 2023 Respiratory Syncytial Virus (RSV) Immunization (Adult) (1 - 1-dose 75+ series) 2070 Meningococcal Immunization (ACWY) Aged Out No longer eligible based on patient's age to complete this topic Pneumococcal Immunization Combined Aged Out No longer eligible based on patient's age to complete this topic Rotavirus Immunization Aged Out No lo nger eligible based on patient's age to complete this topic Care Teams Manager Of Clinical Relationship Specialty Start Date End Date Renetta Xavier APRN, YENNY [address] [place] [id number] PCP - General Family Medicine 07/15/22
--- OUTSIDE RECORDS SUMMARY | 2024-06-07 00:37 | XMS_ITS | Patient Health Summary ---
Author Organization [facility] [employer] Address [address] [address] Care Team Providers Care Vessel Manager Name Role Phone Unavailable Primary Care Provider Unavailabl e Note from [facility],non-owned Affiliates and Associated Physician Practices is amultiple site organization consisting of ambulatory clinics and hospital sitesin [place], [place], [place] and [place]. This disclosure is being madepursuant to the Care Everywhere program and may not contain all information available regarding this patient. Last updated 17.[facility] [employer] Allergies No known active allergies Medications Be [...]
--- NOTE | 2024-06-07 05:48 | PM.IMHP ---
H&P: HPI History of Present Illness Date/Time: 06/07/24 05:48 Chief Complaint: Missed A/B first-trimester Narrative: 29-year-old 3 para 1 in 1st trimester with missed A/B for suction dilatation curettage ultrasound reveals 9 week loss risks and benefits reviewed [facility] Past Medical History Medical History Anxiety and depression History of sinus problem contractions (Unknown) Family History Family History Grandparent Colon cancer Mother Diabetes mellitus Grandparent Diabetes mellitus Social History Social History Smoking status: Never smoker Second hand tobacco smoke exposure: No Substance use: never Substance use type: marijuana Other substance usage details: Before getting . Living arrangements: with family Gender identity (if verbalized by the patient): Female Spiritual care concerns: No Comments At the time of my signature, I reviewed and agree with the nursing past medical, surgical, social, and family history. There is no relevant family history pertinent to the patient complaint. Meds Home Medications and Allergies Home Medications ?Medication ?Instructions ?Recorded ?Confirmed ?Type amitriptyline 10 mg tablet 10 mg PO HS 02/17/21 06/04/24 History ibuprofen 800 mg tablet 800 mg PO TID PRN pain #60 tabs 02/23/22 06/04/24 Rx Allergies Allergy/AdvReac Type Severity Reaction Status Date / Time No Known Allergies Allergy Verified 06/04/24 09:29 Exam Const: General: cooperative, healthy appearing and comfortable Nutritional Appearance: average body habitus Orientation/consciousness: oriented to person, oriented to place and oriented to time HENMT: Head: normal to inspection Resp: Effort & Inspection: normal respiratory effort Cardio: Rate: regular rate Rhythm: regular rhythm Heart sounds: S1 normal heart sound present and S2 normal heart sound present GI: Inspection: normal to inspection : External Female Exam: normal external appearance Speculum Exam - Vagina: normal appearance of the vagina Speculum Exam - Cervix: normal appearance of the cervix Bimanual exam- vagina & uterus: enlarged Bimanual Exam- Adnexa, other: normal adnexae Assessment and Plan Assessment and plan (1) Missed : Code(s): O02.1 - Missed Status: Acute Plan Proceed with suction dilatation curettage
--- NOTE | 2024-06-07 05:51 | WPDHPUPDATE1 ---
History and Physical Update Update Date/Time: 06/07/24 05:51 History and Physical has been reviewed, including an updated exam of the patient. There are NO changes in the patient's condition. Risks, benefits, and alternatives have been discussed and questions answered. Patient agrees to proceed with procedure.
[2024-06-07] MEDS: ACETAMINOPHEN 500 MG TABLET 1000 MG PO (06:30)
[2024-06-07 07:00] LABS: Hemoglobin 11.8 g/dL (12.0-15.0)
[2024-06-07 07:11] VITALS: BP 107/67; PULSE 69; RESP 18; TEMP 36.6; O2SAT 100
--- NOTE | 2024-06-07 07:18 | P.PNAN_ITS ---
Anes - Initial Pre Proc Eval Procedure: Operation Date: 06/07/24 07:30 Proposed Procedures p Suction Dilation and Curettage - Spencer Franco MD Date/Time: 06/07/24 07:18 Surgeon: Spencer Franco MD Pre Op Diagnosis: Missed AB Patient Data Age: 29 Gender: F Height: 1.52 m Weight: 59 kg Last Vital Signs Temp 36.6 C 06/07/24 07:11 Pulse 69 06/07/24 07:11 Resp 18 06/07/24 07:11 BP 107/67 06/07/24 07:11 Pulse Ox 100 06/07/24 07:11 O2 Del Method Room Air 06/07/24 07:11 Allergies Allergy/AdvReac Type Severity Reaction Status Date / Time No Known Allergies Allergy Verified 06/07/24 07:08 Home Medications ?Medication ?Instructions ?Recorded ?Confirmed ?Type amitriptyline 10 mg tablet 10 mg PO HS 02/17/21 06/04/24 History ibuprofen 800 mg tablet 800 mg PO TID PRN pain #60 tabs 02/23/22 06/04/24 Rx hydrocodone 5 mg-acetaminophen 325 1 tablet PO Q4H PRN pain #14 tabs 06/07/24 Rx mg tablet Laboratory Tests 06/07/24 06:39 Hgb 11.8 L D g/dL (12.0-15.0) Hct 35.0 L % (37.0-47.0) Patient hx anesthesia problems: none Family hx anesthesia problems: none Results Review: All pre-operative results and documents have been reviewed as part of the pre- operative evaluation. [facility] Past Medical History Medical History Anxiety and depression History of sinus problem contractions (Unknown) Family History Family History Grandparent Colon cancer Mother Diabetes mellitus Grandparent Diabetes mellitus Social History Social History Smoking status: Never smoker Second hand tobacco smoke exposure: No Substance use: never Substance use type: marijuana Other substance usage details: Before getting . Living arrangements: with family Gender identity (if verbalized by the patient): Female Spiritual care concerns: No Anes - Eval Final PreProcedure Day of Procedure 06/07/24 07:18 Patient weight: normal Heart: regular rate and rhythm Lungs: clear to auscultation Airway: Mallampati scale class II Neurological: alert and oriented Last oral intake: >/= 8 hours ASA classification: II Emergent: no Anesthetic plan: proceed Anesthesia type and monitoring: general GIVS and standard monitoring Results Review: All pre-operative results and documents have been reviewed as part of the pre- operative evaluation. Informed Consent: The patient's anesthetic plan and its attendant risks and benefits were discussed with the patient/family/POA. Questions were solicited and answers provided to the satisfaction of the patient/family/POA.
[2024-06-07] MEDS: LIDOCAINE 1% LOCAL INJ 10 ML VIAL INFILTRATE (07:38)
[2024-06-07 07:50] VITALS: BP 114/74; PULSE 80; RESP 14; O2SAT 96
[2024-06-07] MEDS: LACTATED RINGERS 1,000 ML 30 ML IV CONT (07:50)
--- NOTE | 2024-06-07 07:50 | W.PM.PROC2 ---
Procedure Note - Detailed Date of Procedure 06/07/24 Pre-op Diagnosis Missed AB Post-op Diagnosis Same Procedure Performed Suction dilatation and curettage Surgeon Spencer Franco MD Anesthesia MAC and Local Indications 29-year-old female with first-trimester missed A/B Findings Uterus sounded to 10cm. Tissue consistent with products of conception Description of Procedure Patient was prepped draped sterile fashion placed in dorsal lithotomy position. Under excellent IV sedation weighted speculum placed in posterior fornix vagina. Anterior lip of cervix grasped with single-tooth tenaculum. 2.5cc 1% xylocaine anesthesia placed at 2, 4, 8, 10:00 a.m. of the cervix. Uterus sounded to 10cm. Serial dilatation with fragmented dilators performed followed by passes 10. Suction curette a moderate to large amount of tissue was removed. When no further tissue could be removed and grating sound was heard the instruments withdrawn. The patient went recovery in satisfactory condition. All sponge, needle, instrument counts were correct. Were no immediate complications and she did not require RhoGAM as she is Rh positive Estimated Blood Loss 50 Drains No Packing No Pathology Yes (Specimen sent fresh for chromosomes) Complications No immediate complications Condition Stable Disposition PACU
[2024-06-07 08:20] VITALS: BP 106/70; PULSE 71; RESP 20
[2024-06-07] MEDS: oxyCODONE HCL (*CRX) 5 MG TAB IR PO (08:22)
[2024-06-07 08:50] VITALS: BP 140/70; PULSE 75; RESP 20
[2024-06-07] MEDS: fentaNYL CITRATE INJ (*CRX) 100 MCG/2 ML VIAL 25 MCG IV PUSH ×2 (09:08→09:19)
[2024-06-07 09:20] VITALS: BP 102/61; PULSE 62; RESP 20
[2024-06-07 09:35] VITALS: BP 101/59; PULSE 65; RESP 20
== END 2024-06-07 09:40 | disposition home or self-care (01) ==
PROVIDERS: Visit Provider Obstetrics & Gynecology
PROC: (CPT 59820; principal; 2024-06-07 07:30)
DX: O02.1 Missed abortion (principal); F41.8 Other specified anxiety disorders; F12.90 Cannabis use, unspecified, uncomplicated; Z79.891 Long term (current) use of opiate analgesic; Z79.1 Long term (current) use of non-steroidal anti-inflammatories (NSAID); Z80.0 Family history of malignant neoplasm of digestive organs
CPT/HCPCS: 59820; 36415; 85014; 85018; 85461; 86850; 86900; 86901; 88264; 88305; A9270; J2003; J2250; J2270; J2704; J3010; J7120

== ENCOUNTER 2025-02-22 09:09 | Outpatient (CLI) | payer OTHER, SELFPAY ==
--- OUTSIDE RECORDS SUMMARY | 2025-02-22 09:35 | XMS_ITS | Clinical Summary ---
Author Organization [facility] Address [address] [place] [address] Phone Care Team Providers Care Director On Air Name Role Phone Renetta Xavier YENNY TEJADA Primary Care Provider [phone] Allergies No known active allergies Medications Meloxicam [...] 10:56 AM CDT Height 160 cm (5' 3) 12/20/2019 10:56 AM CDT Body Mass Index 20.37 12/20/2019 10:56 AM CDT Plan of Treatment Health Maintenance Due Date Last Done Comments Hepatitis C Virus (HCV) Screening 1995 TdaP Immunization 1995 Varicella Immunization (1 of 2 - 13+ 2-dose series) 2008 Hepatitis B Immunization (1 of 3 - 19+ 3-dose series) 2014 Human Papillomavirus (HPV) Immunization (1 - 3-dose SCDM series) 2022 Influenza Immunization (#1) 2024 SARS-COV-2 Immunization ( - 2024- season) 2024 Respiratory Syncytial Virus (RSV) Immunization (Adult) (1 - 1-dose 75+ series) 2070 Meningococcal Immunization (ACWY) Aged Out No longer eligible based on patient's age to complete this topic Pneumococcal Immunization Combined Aged Out No longer eligible based on patient's age to complete this topic Rotavirus Immunization Aged Out No lo nger eligible based on patient's age to complete this topic Care Teams Director On Air Relationship Specialty Start Date End Date Renetta Xavier APRN, CNP PCP - General Family Medicine 07/15/22
--- OUTSIDE RECORDS SUMMARY | 2025-02-22 09:35 | XMS_ITS | Clinical Summary ---
Author Organization [facility] Address [address] [place] [address] Care Team Providers Care Video Production Intern Name Role Phone Unavailable Primary Care Provider Unavailabl e Source Comments [facility],non-owned Affiliates and Associated Physician Practices is amultiple site organization consisting of ambulatory clinics and hospital sitesin [place], [place], [place] and [place]. This disclosure is being madepursuant to the Care Everywhere program and may not contain all information available regarding this patient. Last updated 17.[facility] Allergies No known active allergies Medications * Be aware that medications may not be up to date on this document. Alwaysverify current medications with the patient. No known medications Social History Tobacco Use Types Packs/Day Years Used Date Smoking Tobacco: Never Smokeless Tobacco: Never Comments Unknown Sex and Gender Information Value Date Recorded Sex Assigned at Not on file Legal Sex Female 9:31 PM CDT Gender Identity Not on file [...] Health Maintenance Due Date Last Done Comments HIV SCREENING 2010 HEPATITIS C SCREENING 05/02/2013 DTAP/TDAP/TD VACCINES (1 - Tdap) 2014 HEPATITIS B VACCINE (1 of 3 - 19+ 3-dose series) 2014 PAP SMEAR 2016 HPV VACCINE (1 - 3-dose SCDM series) 2022 DEPRESSION SCREENING 03/24/2024 COVID-19 VACCINE (1 - 2024-2 6 season) 2024 INFLUENZA VACCINE (#1) 2024 ZOSTER VACCINE (1 of 2) 2045 HIB [...] on patient's age to complete this topic Insurance [facility] SELF PAY NO INSURANCE Member Subscriber Plan / Payer (Ef fective for All Dates) Name:Luiz Chan Member ID:Not on file Relation to Subscriber:Not on file Name:LUIZ CHAN Subscriber ID:Not on file (Home) Address: [address] [place] [id number] Payer ID:Not on file Group ID:Not on file Type:Self Pay Address: [facility]
== END 2025-02-22 09:10 | disposition home or self-care (01) ==
LOC: ANHLAB 09:11
PROVIDERS: Visit Provider Nurse Practitioner Family
DX: O09.299 Supervision of pregnancy with other poor reproductive or obstetric history, unspecified trimester (principal); Z3A.00 Weeks of gestation of pregnancy not specified
CPT/HCPCS: 36415; 84702

== ENCOUNTER 2025-03-11 15:12 | Outpatient (CLI) | payer OTHER, SELFPAY ==
--- NOTE | ~2025-03-11 | US_ITS ---
EXAMINATION: US OB <= 14 weeks fetus DATE: 03/11/2025 15:31 INDICATION: Follow-up gestational dating TECHNIQUE: Real-time transabdominal obstetric ultrasound. FINDINGS: Ultrasound dated 03/01/2025 The uterus measures 9.7 x 5.8 x 5.6 cm. There is a small subchorionic hemorrhage measuring 1.5 x 0.9 x 0.9 cm.. There is an intrauterine gestational sac, with pole identified. The crown rump length measures 1.72 cm, which correlates with a estimated gestational age of 8 weeks 1 day. heart tones are identified measuring 160 BPM. There is a small corpus luteal cyst of the right ovary measuring 2.3 cm. Left ovary is unremarkable. IMPRESSION: 1. SL IUP with an EGA of 8 weeks, 1 days (EDC by current ultrasound of 10/20/2025). 2: Small subchorionic hemorrhage measuring 1.5 x 0.9 x 0.9 cm. Reviewed, dictated and finalized at location O. [facility]TER HELPER IMPRESSION: 1. SL IUP with an EGA of 8 weeks, 1 days (EDC by current ultrasound of ). 2: Small subchorionic hemorrhage measuring 1.5 x 0.9 x 0.9 cm.
== END 2025-03-11 15:13 | disposition home or self-care (01) ==
LOC: GOSHIMG 15:13
PROVIDERS: PCP Nurse Practitioner Obstetrics & Gynecology; Visit Provider Nurse Practitioner Obstetrics & Gynecology
DX: O09.299 Supervision of pregnancy with other poor reproductive or obstetric history, unspecified trimester (principal); Z3A.08 8 weeks gestation of pregnancy
CPT/HCPCS: 76801